=== PATIENT | female | born 1990 | race Caucasian/White ===

== ENCOUNTER 2016-09-01 19:55 | Emergency (ER) | payer OTHER ==
[2016-09-01 21:51] LABS: BILIRUBIN NEGATIVE (NEGATIVE); BLOOD NEGATIVE Ery/uL (NEGATIVE); CLARITY CLEAR (CLEAR); COLOR YELLOW (YELLOW); GLUCOSE (U) NORMAL (NORMAL); KETONE (U) NEGATIVE (NEGATIVE); LEUKOCYTES NEGATIVE Leu/uL (NEGATIVE); NITRITE NEGATIVE (NEGATIVE); PROTEIN NEGATIVE (NEGATIVE); SPECIFIC GRAVITY 1.015 (1.001-1.030); UROBILINOGEN 0.2 mg/dL (0.2-1.0); pH 7.5 (5.0-9.0)
== END 2016-09-01 22:07 | disposition home or self-care (01) ==
LOC: FER 19:55
PROVIDERS: Nurse Practitioner Family
DX: J11.1 Influenza due to unidentified influenza virus with other respiratory manifestations (principal); R30.0 Dysuria; F17.210 Nicotine dependence, cigarettes, uncomplicated
CPT/HCPCS: 81003; 87450; 87804; 87899; 99283

== ENCOUNTER 2016-09-30 23:58 | Emergency (ER) | payer OTHER ==
[2016-10-01 01:09] LABS: BILIRUBIN NEGATIVE (NEGATIVE); BLOOD TRACE-INTACT Ery/uL (NEGATIVE); CLARITY CLEAR (CLEAR); COLOR YELLOW (YELLOW); GLUCOSE (U) NORMAL (NORMAL); KETONE (U) NEGATIVE (NEGATIVE); LEUKOCYTES NEGATIVE Leu/uL (NEGATIVE); NITRITE NEGATIVE (NEGATIVE); PROTEIN NEGATIVE (NEGATIVE); UROBILINOGEN 0.2 mg/dL (0.2-1.0); pH 7.5 (5.0-9.0)
[2016-10-01 01:14] LABS: SQUAMOUS EPITHELIAL CELLS RARE
[2016-10-01 01:40] LABS: BASOPHIL 0.5 % (0-2); EOSINOPHIL 2.8 % (0-5); HCT 37.7 % (37.0-47.0); HGB 12.9 g/dl (12.5-16.0); LYMPHOCYTE 39.5 % (15-48); MCH 30.4 pg (25.0-31.0); MCHC 34.2 g/dL (32.0-36.0); MCV 88.7 fL (78.0-100.0); MONOCYTE 4.5 % (0-12); MPV 11.7 fL (6.0-9.5); NEUTROPHIL 52.7 % (41-80); PLT 189 K/uL (150-400); RBC 4.25 M/uL (4.20-5.40); RDW 12.4 % (11.5-14.0); WBC 10.3 K/uL (4.0-10.5)
[2016-10-01 01:56] LABS: CREATININE 0.6 mg/dL (0.5-1.0); POTASSIUM 3.7 mmol/L (3.5-5.1)
== END 2016-10-01 03:45 | disposition home or self-care (01) ==
LOC: FER 23:58
PROVIDERS: Emergency Medicine Emergency Medical Services
DX: R06.02 Shortness of breath (principal); E86.0 Dehydration; F41.9 Anxiety disorder, unspecified; F17.210 Nicotine dependence, cigarettes, uncomplicated
CPT/HCPCS: 36415; 71020; 80048; 81001; 85025; 85379; 93005

== ENCOUNTER 2016-12-16 21:02 | Emergency (ER) | payer OTHER ==
[2016-12-16 22:58] LABS: BILIRUBIN NEGATIVE (NEGATIVE); BLOOD TRACE-INTACT Ery/uL (NEGATIVE); CLARITY CLEAR (CLEAR); COLOR YELLOW (YELLOW); GLUCOSE (U) NORMAL (NORMAL); KETONE (U) NEGATIVE (NEGATIVE); LEUKOCYTES NEGATIVE Leu/uL (NEGATIVE); NITRITE NEGATIVE (NEGATIVE); PROTEIN NEGATIVE (NEGATIVE); UROBILINOGEN 0.2 mg/dL (0.2-1.0); pH 6.5 (5.0-9.0)
[2016-12-16 22:59] LABS: BASOPHIL 0.6 % (0-2); EOSINOPHIL 4.8 % (0-5); HCT 35.5 % (37.0-47.0); HGB 12.4 g/dl (12.5-16.0); LYMPHOCYTE 34.9 % (15-48); MCH 31.6 pg (25.0-31.0); MCHC 34.9 g/dL (32.0-36.0); MCV 90.3 fL (78.0-100.0); MPV 11.1 fL (6.0-9.5); NEUTROPHIL 53.7 % (41-80); PLT 160 K/uL (150-400); RBC 3.93 M/uL (4.20-5.40); RDW 12.7 % (11.5-14.0); WBC 6.5 K/uL (4.0-10.5)
[2016-12-16 23:05] LABS: MUCOUS MODERATE; URINARY RBC RARE
[2016-12-16 23:17] LABS: ALBUMIN 4.1 g/dL (3.5-5.0); BILIRUBIN - TOTAL 0.2 mg/dL (0.1-1.0); CREATININE 0.6 mg/dL (0.5-1.0); GLOBULIN (CALCULATION) 2.3 g/dL (2.2-4.2); POTASSIUM 4.1 mmol/L (3.5-5.1); TOTAL PROTEIN 6.4 g/dL (6.4-8.3)
== END 2016-12-17 00:32 | disposition home or self-care (01) ==
LOC: FER 21:02
PROVIDERS: Nurse Practitioner Family
DX: B34.9 Viral infection, unspecified (principal); F17.210 Nicotine dependence, cigarettes, uncomplicated; Z98.51 Tubal ligation status
CPT/HCPCS: 36415; 80053; 81001; 82150; 83690; 85025; 87339

== ENCOUNTER 2020-12-26 20:53 | Emergency (ER) | payer OTHER ==
[~2020-12-26 20:53] MED LIST: BROMFED DM COU473 ML PO; IBUPROFEN800 MG PO; NAPROXEN500 MG PO; PERCOCET 5-3251 EACH PO; ZOFRAN4 MG PO; ZPAK PO
[2020-12-26] MEDS ORDERED: NORCO 5-325 TA1 EACH PO (22:33)
[2020-12-26] MEDS ORDERED: PREDNISONE 20MG20 MG PO (22:33)
[2020-12-26] MEDS ORDERED: IBUPROFEN800 MG PO (22:33)
== END 2020-12-26 22:55 | disposition home or self-care (01) ==
LOC: FER 20:53
DX: H92.01 Otalgia, right ear (principal); R51.9 Headache, unspecified; F17.210 Nicotine dependence, cigarettes, uncomplicated
CPT/HCPCS: 70450

== ENCOUNTER 2021-07-30 12:41 | Emergency (ER) | payer OTHER ==
[~2021-07-30 12:41] MED LIST changes: +NORCO 5-325 TA1 EACH PO; +PREDNISONE 20MG20 MG PO
[2021-07-30 13:26] LABS: BASOPHIL 0.8 % (0-2); EOSINOPHIL 5.7 % (0-5); HCT 40.2 % (37.0-47.0); HGB 13.4 g/dl (12.5-16.0); LYMPHOCYTE 45.9 % (15-48); MCH 30.1 pg (25.0-31.0); MCHC 33.3 g/dL (32.0-36.0); MCV 90.3 fL (78.0-100.0); MONOCYTE 9.8 % (0-12); MPV 11.4 fL (6.0-9.5); NEUTROPHIL 37.8 % (41-80); NRBC 0; PLT 139 K/uL (150-400); RBC 4.45 M/uL (4.20-5.40); RDW 12.9 % (11.5-14.0); WBC 3.9 K/uL (4.0-10.5)
[2021-07-30 13:48] LABS: BUN/CREAT RATIO (CALC) 11.7 RATIO; CREATININE 0.6 mg/dL (0.51-0.95); POTASSIUM 4.1 mmol/L (3.5-5.1)
== END 2021-07-30 15:03 | disposition home or self-care (01) ==
LOC: FER 12:41
PROVIDERS: Nurse Practitioner Family
DX: U07.1 COVID-19 (principal); R07.89 Other chest pain; F17.210 Nicotine dependence, cigarettes, uncomplicated; Z91.013 Allergy to seafood; Z88.8 Allergy status to other drugs, medicaments and biological substances
CPT/HCPCS: 36415; 71046; 80048; 85025; 85379; 93005